=== PATIENT | male | born 1995 | race American Indian/Alaskan Native ===

== ENCOUNTER 2018-12-18 10:02 | Emergency (ER) | payer SELFPAY ==
[2018-12-18 10:11] VITALS: BP 161/94
== END 2018-12-18 10:15 | disposition left against medical advice (07) ==
LOC: ED 10:02
DX: R04.0 Epistaxis (principal); Z53.21 Procedure and treatment not carried out due to patient leaving prior to being seen by health care provider

== ENCOUNTER 2019-03-09 06:45 | Emergency (ER) | payer OTHER ==
[2019-03-09 06:51] VITALS: BP 157/97
== END 2019-03-09 12:18 | disposition left against medical advice (07) ==
LOC: ED 06:45
DX: R51 Headache (principal); Z53.21 Procedure and treatment not carried out due to patient leaving prior to being seen by health care provider